=== PATIENT | female | born 1985 | race Caucasian/White ===

== ENCOUNTER 2020-04-07 19:05 | Inpatient (IN) ==
[2020-04-07 19:15] VITALS: BMI 41.5
[2020-04-07] MEDS ORDERED: D5 1/2 NS 1000 ML 1,000 ML IV ONE (19:22)
[2020-04-07 20:18] LABS: BASOPHILS # (AUTO) 0.1 X10^3/uL (0.0-0.1); BASOPHILS % (AUTO) 0.8 % (0.2-1.0); EOSINOPHILS # (AUTO) 0.1 x10^3/uL (0.0-0.2); EOSINOPHILS % (AUTO) 0.9 % (0.9-2.9); HEMATOCRIT 36.4 % (36.0-47.0); HEMOGLOBIN 12.5 g/dL (12.0-16.0); LYMPHOCYTES # (AUTO) 2.3 X10^3/uL (1.3-2.9); LYMPHOCYTES % (AUTO) 15.9 % (21.0-51.0); MEAN CORPUSCULAR HEMOGLOBIN 30.4 pg (27.0-34.0); MEAN CORPUSCULAR HGB CONC 34.5 g/dL (33.0-35.0); MEAN CORPUSCULAR VOLUME 88.2 fL (80.0-100.0); MEAN PLATELET VOLUME 10.7 fL (7.4-11.0); MONOCYTES # (AUTO) 0.5 x10^3/uL (0.3-0.8); MONOCYTES % (AUTO) 3.8 % (0.0-13.0); NEUTROPHILS # (AUTO) 11.2 x10^3/uL (2.2-4.8); NEUTROPHILS % (AUTO) 78.6 % (42.0-75.0); PLATELET COUNT 200 X10^3/uL (150.0-450.0); RED BLOOD COUNT 4.12 X10^6/uL (3.5-5.4); RED CELL DISTRIBUTION WIDTH 13.2 % (11.6-16.5); WHITE BLOOD COUNT 14.2 X10^3/uL (3.6-10.0)
[2020-04-07 20:35] LABS: ALANINE AMINOTRANSFERASE 22 Units/L (12-78); ALBUMIN 2.1 g/dL (3.4-5.0); ALKALINE PHOSPHATASE 232 Units/L (46-116); ASPARTATE AMINO TRANSFERASE 28 Units/L (15-37); BLOOD UREA NITROGEN 7 mg/dL (7-18); CALCIUM 8.8 mg/dL (8.5-10.1); CARBON DIOXIDE 21.4 mmol/L (21-32); CHLORIDE 104 mmol/L (98-107); COR CA(FOR HYPOALB) 10.3 mg/dL (8.5-10.1); CREATININE 0.85 mg/dL (0.55-1.02); SODIUM 136 mmol/L (136-145); TOTAL PROTEIN 6.6 g/dL (6.4-8.2); eGFR NON BLACK RACES > 60 (>60)
[2020-04-07 20:39] LABS: BILIRUBIN,URINE NEGATIVE (NEGATIVE); BLOOD/HEMOGLOBIN,URINE 1+ (NEGATIVE); GLUCOSE, URINE NEGATIVE (NEGATIVE); KETONES,URINE NEGATIVE (NEGATIVE); LEUKOCYTE ESTERASE ,URINE 1+ (NEGATIVE); NITRITES,URINE NEGATIVE (NEGATIVE); PROTEIN,URINE 1+ (NEGATIVE); UROBILINOGEN,URINE 1+ (NORMAL)
[2020-04-07 20:45] LABS: APPEARANCE,URINE SLIGHTLY HAZY (CLEAR); COLOR,URINE YELLOW (YELLOW)
[2020-04-07 20:52] LABS: BACTERIA,URINE TRACE /HPF (NEGATIVE); RBC,URINE NONE SEEN /HPF (0-3); SQUAMOUS EPITHELIAL CELL,UR FEW /HPF (NEGATIVE)
[2020-04-07 20:54] LABS: AMNISURE ROM TEST NO MEMBRANES RUPTURE (NO RUPTURE)
[2020-04-07] MEDS ORDERED: D5 1/2 NS 1000 ML 1,000 ML IV SCH (21:00)
[2020-04-07] MEDS ORDERED: ANCEF 1 GRAM IV PREMIX* 2 G/100 ML BAG IV ONE (21:24)
[2020-04-07] MEDS ORDERED: ANCEF VIAL 1 GRAM IVP ONE (21:24)
[2020-04-07] MEDS ORDERED: LR 1000 ML IV 1,000 ML IV ONE ×2 (21:26→21:27)
[2020-04-07] MEDS ORDERED: BICITRA 30 ML PO ONE (21:52)
[2020-04-07] MEDS ORDERED: DILAUDID INJ ONE (21:53)
[2020-04-07] MEDS ORDERED: VERSED ONE (22:01)
[2020-04-07] MEDS ORDERED: EPHEDRINE SULFATE INJ ONE (22:01)
[2020-04-07] MEDS ORDERED: REGLAN INJ 10 MG VIAL IVP PRN (23:48)
[2020-04-07] MEDS ORDERED: PHENERGAN INJ 25 MG IM PRN (23:48)
[2020-04-07] MEDS ORDERED: ZOFRAN INJ 4 MG VIAL IVP PRN (23:48)
[2020-04-07] MEDS ORDERED: DILAUDID INJ IVP PRN (23:48)
[2020-04-07] MEDS ORDERED: BENADRYL INJ 50 MG VIAL IVP PRN (23:48)
[2020-04-08] MEDS ORDERED: REGLAN INJ 10 MG VIAL IVP PRN (00:14)
[2020-04-08] MEDS ORDERED: ZOFRAN INJ 4 MG VIAL IVP PRN (00:14)
[2020-04-08] MEDS ORDERED: BENADRYL INJ 50 MG VIAL IVP PRN (00:14)
[2020-04-08] MEDS ORDERED: MYLICON TAB 80 MG CHEW PO PRN (00:14)
[2020-04-08] MEDS ORDERED: NARCAN INJ IVP PRN (00:14)
[2020-04-08] MEDS ORDERED: D5 1/2 NS 1000 ML 1,000 ML with PITOCIN 20 UNITS IV SCH ×2 (00:14)
[2020-04-08] MEDS ORDERED: ADACEL or BOOSTRIX TDaP VACCINE IM ONE ×2 (00:14→05:39)
[2020-04-08] MEDS ORDERED: TORADOL 30 MG VIAL IVP PRN (00:14)
[2020-04-08] MEDS ORDERED: PERCOCET TAB 5/325 MG PO PRN ×2 (00:14→06:27)
[2020-04-08] MEDS ORDERED: TORADOL 30 MG VIAL ONE (02:01)
[2020-04-08 04:19] LABS: HEMATOCRIT 36.3 % (36.0-47.0); HEMOGLOBIN 12.5 g/dL (12.0-16.0)
[2020-04-08] MEDS: COLACE CAP 100 MG PO SCH ×2 (09:40→20:18)
[2020-04-08] MEDS: MOTRIN TAB 800 MG PO PRN ×2 (09:41→20:18)
[2020-04-08] MEDS: PRENATAL PLUS PO SCH (09:41)
[2020-04-08] MEDS: PROTONIX TAB 40 MG PO SCH (09:41)
[2020-04-08] MEDS ORDERED: PERCOCET TAB 5/325 MG ONE (12:31)
[2020-04-08] MEDS: BACTROBAN TOPICAL OINT TOP SCH ×2 (14:41→22:03)
[2020-04-09] MEDS: BACTROBAN TOPICAL OINT TOP SCH (05:24)
[2020-04-09] MEDS: MOTRIN TAB 800 MG PO PRN (05:25)
[2020-04-09] MEDS: PRENATAL PLUS PO SCH (08:41)
[2020-04-09] MEDS: COLACE CAP 100 MG PO SCH (08:41)
[2020-04-09] MEDS: PROTONIX TAB 40 MG PO SCH (08:42)
[2020-04-09 08:46] VITALS: BP 122/81
== END 2020-04-09 10:10 | disposition home or self-care (01) | DRG 785 ==
LOC: ER 19:05 → LD 21:10 → OBS 04-08 00:13
PROVIDERS: ADMIT Specialist; ATTEND Specialist